=== PATIENT | male | born 1945 | race Caucasian/White ===

== ENCOUNTER 2018-06-07 12:25 | Outpatient (CLI) | payer MEDICARE ==
[~2018-06-07 12:25] MED LIST: ISOVUE-370 76%-LOCM 1 ML ONE
== END 2018-06-07 12:26 | disposition home or self-care (01) ==
LOC: BICCT 12:25
PROVIDERS: ATTEND Urology
DX: N40.1 Benign prostatic hyperplasia with lower urinary tract symptoms (principal); R31.29 Other microscopic hematuria; N28.1 Cyst of kidney, acquired; K76.89 Other specified diseases of liver; N32.3 Diverticulum of bladder; I70.8 Atherosclerosis of other arteries; K59.00 Constipation, unspecified
CPT/HCPCS: 74178

== ENCOUNTER 2018-08-12 05:44 | Day surgery (SDC) | payer MEDICARE ==
[2018-08-11 14:17] VITALS: BMI 22.1
[2018-08-12] MEDS ORDERED: Clindamycin/D5W 600 mg/50 ml Premix Bag ONE (06:15)
[2018-08-12 06:40] LABS: #Eosinphils 0.1 thou/uL (0.0-0.7); #Lymphocytes 1.3 thou/uL (1.20-3.40); #Monocytes 0.4 thou/uL (0.11-0.59); #Neutrophils 3.4 thou/uL (1.40-6.50); %Basophils 0.6 % (0.0-1.0); %Eosinophils 1.6 % (0.0-10.0); %Lymphocytes 24.6 % (21.0-51.0); %Monocytes 7.4 % (0.0-10.0); %Neutrophils 65.9 % (42.0-75.0); Hemoglobin 16.3 g/dL (14.0-18.0); Mean Corpuscular HGB CONC 33.7 g/dL (32.0-36.0); Mean Corpuscular Volume 94.9 fL (78.0-98.0); Mean Platelet Volume 8.6 fL (7.4-10.4); Platelet Count 166 thou/uL (130-400); RBC Distribution Width 12.3 % (11.5-14.5); White Blood Cell (WBC) Count 5.2 thou/uL (4.8-10.8)
[2018-08-12] MEDS ORDERED: Midazolam HCl 2 mg/2 ml Vial ONE (06:45)
[2018-08-12] MEDS ORDERED: Fentanyl 100 MCG/2 ML VIAL ONE (06:45)
[2018-08-12] MEDS ORDERED: Bacitracin Zinc Ointment 30 gm TUBE ONE (06:49)
[2018-08-12] MEDS ORDERED: Betamet Acet/Betamet Na Ph 30 MG/5 ML VIAL ONE (06:49)
[2018-08-12] MEDS ORDERED: Bupivacaine PF 0.5% 30 ML VIAL ONE (06:49)
[2018-08-12] MEDS ORDERED: Ketorolac Tromethamine 30 MG/ML VIAL ONE (08:33)
--- NOTE | 2018-08-12 10:21 | OP ---
DATE OF PROCEDURE: 08/12/2018 SURGEON: Dr. Noel Maier ANESTHESIA: General LMA technique augmented by a total of 30 mL 0.5% Marcaine block, 20 given before the procedure, and 10 given after the incision was closed. FINDINGS: 1. Large ganglion cyst with his back wall involving tenosynovitis of the extensor tendons which had 5 different sleeves in the first dorsal compartment. 2. Stalk connecting to the snuffbox portion of the radial carpal joint just underneath the dorsal br anch of the radial artery. PROCEDURE PERFORMED: 1. Right wrist ganglion incision. 2. Arthrotomy radiocarpal joint/wrist with synovectomy. 3. First dorsal compartment tenosynovectomy of the following tendons; extensor pollicis brevis and 2 multiple sleeves of the abductor pollicis longus. 4. Superficial radial nerve neuroplasty distal aspect or cutaneous nerve neuroplasty. SPECIMEN SENT: Ganglion with tenosynovium to the lab. BLOOD LOSS: 10 mL. TOURNIQUET TIME: 17 minutes. DESCRIPTION OF PROCEDURE: After successful general LMA technique, the limb was prepped and draped. Timeout was done appropriately and the timeout showed that the consent matched the history and physic al, matched the side that was prepped and draped. We then exsanguinated the limb after prepping and draping and inflated the tourniquet to 250 mmHg pressure. A zigzag incision was outlined slightly mo re volar than dorsal because the mass was slightly more volar than dorsal along the first dorsal comp artment. We then made an incision through skin, subcutaneous tissue, performed a neuroplasty of the superficial radial nerve to remove it to take it away from the ganglion because the nerve was draped over the center portion of the ganglion. We then identified the radial artery and superficial branch , but found that the mass back wall had now surrounded the tendons and was deep to the extensor tendo ns beginning at the exit from the first dorsal compartment. Thus, we had to perform the dissection i nvolved, not only freeing the nerve, but we also had defined both branches of the radial artery, whic h we did, found that the dorsal radial artery branch was in the snuffbox was adherent to the back wal l. The mass this as well as superficial radial nerve. We then made an incision to separat e the ganglion from the tendon, which involved not only the ganglion cyst excision, but a radical ext ensor tenosynovectomy of the extensor pollicis brevis and abductor pollicis longus. Once we finished this, we then identified the stalk which went into the radiocarpal joint along its s nuffbox just deep to the dorsal branch radial artery. Once we did this, we made a 5-6 mm arthrotomy, removed some synovium from inside the joint and perform a synovectomy and then the mass was lifted o ut in the sac in total, although the contents of fluid was now gone. We released the tourniquet, obtained hemostasis, placed 3 mL of Celestone in the area where the joint arthrotomy had been made. We then obtained hemostasis, closed with interrupted 4-0 nylon mattress p attern and the patient left the operating room in a short arm splint with no evidence of anesthetic o r operative complication.
[2018-08-12] MEDS ORDERED: Ondansetron PF 4 MG/2 ML Vial ONE (13:00)
[2018-08-12] MEDS ORDERED: Dexamethasone 20 MG/5 ML VIAL ONE (13:00)
[2018-08-12] MEDS ORDERED: PROPOFOL 200 MG/20 ML VIAL ONE (13:00)
[2018-08-12] MEDS ORDERED: Lidocaine 1% PF 5 ML VIAL ONE (13:00)
--- NOTE | 2018-08-17 08:12 | EKG ---
Test Reason : PREOP Blood Pressure : / mmHG Vent. Rate : 074 BPM Atrial Rate : 074 BPM P-R Int : 198 ms QRS Dur : 084 ms QT Int : 404 ms P-R-T Axes : 084 060 083 degrees QTc Int : 448 ms Normal sinus rhythm Normal ECG No previous ECGs available Confirmed by DR. Rea DOMINGUEZ ([id number]) on 08/17/2018 8:12:38 AM Referred By: YOVANY Confirmed By:DR. Rea DOMINGUEZ
== END 2018-08-12 10:05 | disposition home or self-care (01) ==
LOC: SDC 05:44
PROVIDERS: ATTEND Orthopaedic Surgery Hand Surgery
PROC: 0LB50ZZ Excision of Right Lower Arm and Wrist Tendon, Open Approach (ICD-10-PCS; principal; 2018-08-12)
PROC: 0RBN0ZZ Excision of Right Wrist Joint, Open Approach (ICD-10-PCS; 2018-08-12)
PROC: 01S60ZZ Reposition Radial Nerve, Open Approach (ICD-10-PCS; 2018-08-12)
DX: M67.431 Ganglion, right wrist (principal); M65.88 Other synovitis and tenosynovitis, other site; N40.0 Benign prostatic hyperplasia without lower urinary tract symptoms; I10 Essential (primary) hypertension; Z79.899 Other long term (current) drug therapy
CPT/HCPCS: 85025; 85652; 88304; 93005; 93010; 96374; J0702; J1100; J1885; J2001; J2250; J2405; J2704; J3010; J3490; S0020

== ENCOUNTER 2018-10-06 09:57 | Outpatient (CLI) | payer MEDICARE, OTHER ==
--- NOTE | 2018-10-06 13:06 | ULT ---
ULTRASOUND RENAL BILATERAL STANDARD: HISTORY: Incomplete emptying of the urinary bladder. COMPARISON: None. FINDINGS: The right kidney measures 13.2 x 8.2 x 8.7 cm and the left kidney measures 10.4 x 6.8 x 6.3 cm. Ther e is a large right renal cyst measuring up to 9.3 cm. There is a large left renal cyst measuring up to 8.8 cm. The prevoid urinary bladder volume is 105 mL and the postvoid volume is 34 mL. The superior margin of the bladder appears to be a urachal diverticulum with irregular thick rios. IMPRESSION: 1. Large bilateral renal cysts. There appears to be some possible mass effect upon the left renal c ollecting system with mild left-sided hydronephrosis. A urogram CT may be beneficial. Also, there i s possibly some mass effect upon the right renal collecting system with some mild right-sided hydrone phrosis also difficult to evaluate due to very large renal cysts. Again, this can be evaluated on th e CT urogram. 2. 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 The urachal diverticulum are an increased risk for malignancy. This can be evalu ated on the CT urogram. CODE T
[2018-10-06 14:03] LABS: Bilirubin Negative (Negative); Blood, Urine Small (Negative); Clarity TURBID (Clear); Glucose, Urine (Dipstick) Negative (Negative); Leukocyte Large (Negative); Nitrite Negative (Negative); Protein, Urine (Dipstick) 30 mg/dL (Neg-Trace); Specific Gravity, Urine 1.011 (1.002-1.036); Urobilinogen 0.2 mg/dL (0.2-1.0); pH, Urine 7.5 (5.0-9.0)
[2018-10-06 14:07] LABS: Bacteria/HPF None Seen HPF (None Seen); Squamous Epithelial None Seen HPF (0-3)
[2018-10-06 14:20] LABS: Hyaline Casts/LPF NONE SEEN LPF (0-3 Hyaline)
[2018-10-06 14:21] LABS: Yeast-All Forms None Seen HPF (None Seen)
[2018-10-06 14:26] LABS: Anion Gap 15 mmol/L (10-20); BUN (Urea Nitrogen) 12 mg/dL (8.4-25.7); Calc. Creatinine Clearance 0 mL/min (70-130); Calcium 9.7 mg/dL (7.8-10.44); Carbon Dioxide 26 mmol/L (23-31); Chloride 101 mmol/L (98-107); Estimated GFR-MDRD 90; Glucose 104 mg/dL (83-110); Potassium 4.2 mmol/L (3.5-5.1); Sodium 138 mmol/L (136-145)
== END 2018-10-06 09:58 | disposition home or self-care (01) ==
LOC: BICULT 09:57
PROVIDERS: ATTEND Urology
DX: N40.1 Benign prostatic hyperplasia with lower urinary tract symptoms (principal); R33.9 Retention of urine, unspecified; N28.1 Cyst of kidney, acquired; N32.3 Diverticulum of bladder; N13.30 Unspecified hydronephrosis
CPT/HCPCS: 36415; 76770; 80048; 81001; 87086

== ENCOUNTER 2018-10-07 19:13 | Emergency (ER) | payer MEDICARE, OTHER ==
[2018-10-07 20:57] LABS: #Lymphocytes 0.8 thou/uL (1.20-3.40); #Monocytes 0.8 thou/uL (0.11-0.59); %Basophils 0.1 % (0.0-1.0); %Eosinophils 0.2 % (0.0-10.0); %Lymphocytes 5.3 % (21.0-51.0); %Monocytes 5.1 % (0.0-10.0); %Neutrophils 89.2 % (42.0-75.0); Hemoglobin 15.5 g/dL (14.0-18.0); Mean Corpuscular HGB CONC 33.8 g/dL (32.0-36.0); Mean Corpuscular Hemoglobin 32.6 pg (27.0-31.0); Mean Corpuscular Volume 96.2 fL (78.0-98.0); Platelet Count 180 thou/uL (130-400); RBC Distribution Width 12.7 % (11.5-14.5); Red Blood Cell (RBC) Count 4.75 mill/uL (4.70-6.10); White Blood Cell (WBC) Count 15.8 thou/uL (4.8-10.8)
[2018-10-07 21:20] LABS: ALT (SGPT) 18 U/L (8-55); AST (SGOT) 15 U/L (5-34); Albumin 4.3 g/dL (3.4-4.8); Alkaline Phosphatase 75 U/L (40-150); Anion Gap 15 mmol/L (10-20); BUN (Urea Nitrogen) 14 mg/dL (8.4-25.7); Calc. Creatinine Clearance 0 mL/min (70-130); Calcium 9.7 mg/dL (7.8-10.44); Carbon Dioxide 25 mmol/L (23-31); Chloride 104 mmol/L (98-107); Estimated GFR-MDRD 84; Globulin 3.3 g/dL (2.4-3.5); Glucose 125 mg/dL (83-110); Potassium 4.2 mmol/L (3.5-5.1); Protein, Total 7.6 g/dL (5.8-8.1); Sodium 140 mmol/L (136-145)
[2018-10-07 22:00] LABS: Bilirubin Negative (Negative); Blood, Urine Moderate (Negative); Clarity TURBID (Clear); Glucose, Urine (Dipstick) Negative (Negative); Leukocyte Large (Negative); Nitrite Positive (Negative); Protein, Urine (Dipstick) 100 mg/dL (Neg-Trace); Specific Gravity, Urine 1.018 (1.002-1.036); Urobilinogen 0.2 mg/dL (0.2-1.0)
[2018-10-07 22:02] LABS: Bacteria/HPF Rare-Few HPF (None Seen); Hyaline Casts/LPF 4-6 HYALINE CAST LPF (0-3 Hyaline); Pathc Cast-AUWi Flag 0.81 (0-2.49); RBC/HPF GREATER THAN 50-TNTC HPF (0-3); Squamous Epithelial None Seen HPF (0-3)
--- NOTE | 2018-10-07 22:54 | ULT ---
SCROTAL ULTRASOUND WITH COLOR AND SPECTRAL DOPPLER IMAGIN10/07/18 HISTORY: Testicular pain, swelling and redness. Right testis measures 4.2 x 2.1 x 2.3 cm. The left testis measures 3.9 x 2.6 x 3 cm. There is evidenc e for left sided hydrocele with some scattered thin linear debris. There is enlargement of the left e pididymis with considerable increase flow within the left epididymis. There is a left epididymal cyst , 0.5 x 1.2 cm. There is also increased flow in the left testis. Findings are consistent with that of acute left epididymitis and probably mild acute orchitis. Small right sided intratesticular cyst. No evidence for testicular torsion. IMPRESSION: Evidence for left epididymitis and possible mild orchitis with increased blood flow. No evidence for testicular torsion. Small right sided intratesticular cyst. Left sided epididymal cyst. Slightly comp licated appearing left sided hydrocele. POS: [facility]
== END 2018-10-07 23:46 | disposition home or self-care (01) ==
LOC: ERS 19:13
DX: N45.1 Epididymitis (principal); N39.0 Urinary tract infection, site not specified; I10 Essential (primary) hypertension; F41.9 Anxiety disorder, unspecified; Z79.899 Other long term (current) drug therapy
CPT/HCPCS: 36415; 76870; 80053; 81003; 81015; 85025; 93976

== ENCOUNTER 2018-10-24 12:08 | Outpatient (CLI) | payer MEDICARE ==
--- NOTE | 2018-10-24 14:59 | RAD ---
FLUOROSCOPIC CYSTOGRAM: History: Bladder diverticulum. Bladder outlet obstruction. FINDINGS: Approximately 190 cc water soluable contrast was carefully instilled into the urinary bladder via the indwelling Mckeon catheter. Numerous diverticula ranging from small to large in size, some of the diverticula project from the do me and some project posteriorly. None of the diverticula have a pointed appearance typical for a urachal diverticulum. No urachal fist ally is evident. As the bladder is emptied it was somewhat flaccid , not emptying fully with gravity drainage. Fluoro time: 1.1 minutes. 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 None have th e typical appearance of a urachal diverticulum. POS: [facility]
== END 2018-10-24 12:09 | disposition home or self-care (01) ==
LOC: RAD 12:08
PROVIDERS: ATTEND Urology
DX: N32.3 Diverticulum of bladder (principal); R33.9 Retention of urine, unspecified; N32.0 Bladder-neck obstruction
CPT/HCPCS: 51600; 74430

== ENCOUNTER 2018-11-08 05:55 | Day surgery (SDC) | payer MEDICARE, OTHER ==
[2018-10-31 10:33] VITALS: BMI 22.1
[2018-11-08] MEDS ORDERED: cefTRIAXone\\ROCEPHIN 1 GM in Sodium Chloride 0.9% 100 ML IVPB SCH (06:45)
[2018-11-08] MEDS ORDERED: Fentanyl 100 MCG/2 ML VIAL ONE (07:18)
[2018-11-08] MEDS ORDERED: Midazolam HCl 2 mg/2 ml Vial ONE (07:18)
[2018-11-08] MEDS ORDERED: B & O ONE (07:19)
[2018-11-08] MEDS ORDERED: Furosemide 20 MG/2 ML VIAL ONE (07:19)
[2018-11-08] MEDS ORDERED: Ondansetron PF 4 MG/2 ML Vial ONE (10:40)
[2018-11-08] MEDS ORDERED: Lidocaine 1% PF 5 ML VIAL ONE (10:40)
[2018-11-08] MEDS ORDERED: Metoclopramide HCl 10 MG/2 ML VIAL ONE (10:40)
[2018-11-08] MEDS ORDERED: diphenhydrAMINE 50 MG/ML VIAL ONE (10:40)
[2018-11-08] MEDS ORDERED: Dexamethasone 20 MG/5 ML VIAL ONE (10:40)
[2018-11-08] MEDS ORDERED: PROPOFOL 200 MG/20 ML VIAL ONE (10:40)
--- NOTE | 2018-11-08 12:17 | OP ---
DATE OF PROCEDURE: 11/08/2018 PREOPERATIVE DIAGNOSES: Benign prostatic hyperplasia and retention. POSTOPERATIVE DIAGNOSES: Benign prostatic hyperplasia and retention. PROCEDURES PERFORMED: GreenLight laser vaporization of the prostate with enucleation of middle lobe. ANESTHESIA: General with laryngeal mask airway. FINDINGS: Adequate opening up of the prostatic urethra, significant diverticula throughout the bladder. All inspected and found to be free of any chips. 205, 131 joules used and good stream noted at the end. SPECIMENS: Prostate. DRAINS REMAIN: 20-Romanian 2-way catheter. ESTIMATED BLOOD LOSS: Minimal blood loss. COMPLICATIONS: No complications. INDICATIONS OF PROCEDURE: The patient is a 73-year-old male, who is followed in the office for BPH, elevated PSA, and previously undergone negative biopsy, who ultimately went into retention and had indwelling catheter and was set up for definitive surgical intervention. DESCRIPTION OF PROCEDURE: The patient was brought into the room by Anesthesia, laid on the table in supine position. After receiving general anesthetic, his legs were placed in the lithotomy position and his perineum was prepped and draped in a sterile fashion. Using a 22.5-Romanian cystoscope and a 30 degree lens, urethra was traversed first and the bladder inspected. There was even a small diverticula noted on the floor of the bladder just before the trigonal ridge in the larger diverticula more anterior at the dome also noted. There were no lesions. There was some debris noted. At this point, a power level of 80 was used to open up the bladder neck and enucleated the middle lobe. A power of 180 was used for the midgland and a power level of 80 was used at the veru in a small portion of the anterior flow that hung down after opening it up. When the bladder was filled and the scope removed, good stream was noted. The scope was put back in. All chips were ensured to be out. Each diverticulum was inspected and found to be free of chips and then at a low volume. Hemostasis was ensured. A power of 80 was used to paint the prostatic bed for hemostatic purposes. Then, another 2 or 3 minutes was spent irrigating out the bladder off any sort of debris to ensure an adequate rinse out of both the bladder and the diverticula. At this point, the scope was removed final time and a 20-Romanian catheter was placed to gravity and secured. The patient was then awakened and transferred to PACU in stable condition. Job ID: [id number] [facility]
== END 2018-11-08 11:00 | disposition home or self-care (01) ==
LOC: SDC 05:55
PROVIDERS: ATTEND Urology
PROC: 0V508ZZ Destruction of Prostate, Via Natural or Artificial Opening Endoscopic (ICD-10-PCS; principal; 2018-11-08)
DX: N40.1 Benign prostatic hyperplasia with lower urinary tract symptoms (principal); R33.8 Other retention of urine; N13.8 Other obstructive and reflux uropathy; R35.0 Frequency of micturition; R39.14 Feeling of incomplete bladder emptying; R35.1 Nocturia; N32.3 Diverticulum of bladder; I10 Essential (primary) hypertension; E78.5 Hyperlipidemia, unspecified; F41.9 Anxiety disorder, unspecified; Z90.89 Acquired absence of other organs; Z90.49 Acquired absence of other specified parts of digestive tract; Z90.12 Acquired absence of left breast and nipple; Z79.899 Other long term (current) drug therapy; Z98.890 Other specified postprocedural states
CPT/HCPCS: 88305; J0696; J1100; J1200; J1940; J2001; J2250; J2405; J2704; J2765; J3010; J7050